=== PATIENT | male | born 1960 ===

== ENCOUNTER 2024-08-15 09:45 | Outpatient (CLI) | payer OTHER ==
[2024-08-15 11:26] LABS: ALBUMIN 4.2 gm/dL (3.4-5.0); BILIRUBIN TOTAL 0.86 mg/dL (0.3-1.2); CALCIUM 9.6 mg/dL (8.5-10.1); CHOL HDL RATIO 2.3 (0-5.0); GFR 75.71; GLOBULINA 3.8 G/DL (2.4-3.5); POTASSIUM 4.83 mEq/L (3.5-5.1); TSH 1.11 uIU/mL (0.358-3.74)
== END 2024-08-15 09:52 | disposition home or self-care (01) ==
LOC: LAB 09:45
DX: E78.2 Mixed hyperlipidemia (principal); I10 Essential (primary) hypertension

== ENCOUNTER 2024-12-02 08:08 | Outpatient (CLI) | payer OTHER | END 2024-12-02 08:10 | disposition home or self-care (01) | LOC: NUCLEAR 08:08 | PROVIDERS: ATTEND Internal Medicine | DX: I70.203 Unspecified atherosclerosis of native arteries of extremities, bilateral legs (principal); I10 Essential (primary) hypertension; E78.2 Mixed hyperlipidemia; R07.9 Chest pain, unspecified ==

== ENCOUNTER 2024-12-14 08:32 | Outpatient (CLI) | payer OTHER | END 2024-12-14 08:33 | disposition home or self-care (01) | LOC: NUCLEAR 08:32 | PROVIDERS: ATTEND Internal Medicine | DX: I10 Essential (primary) hypertension (principal); E78.2 Mixed hyperlipidemia; I70.203 Unspecified atherosclerosis of native arteries of extremities, bilateral legs; R07.9 Chest pain, unspecified ==

== ENCOUNTER → 2025-01-23 08:06 | Outpatient (CLI) | payer OTHER ==
[2025-01-23 09:36] LABS: URINE APPEARANCE Clear; URINE BILIRRUBIN Negative (NEGATIVE); URINE BLOOD Negative; URINE COLOR Yellow; URINE GLUCOSE Negative (NEGATIVE); URINE KETONE Negative (NEGATIVE); URINE LEUKOCYTE Negative; URINE NITRATE Negative; URINE PROTEIN Negative (NEGATIVE); URINE UROBILINOGEN 0.2 E.U./dl
[2025-01-23 09:40] LABS: URINE BACTERIA 4.8 uL (0.0-1933); URINE RBC 5.2 uL (0.0-20.8)
[2025-01-23 10:05] LABS: HEMATOCRIT 43.9 % (39.0-48.0); HEMOGLOBIN 15.3 g/dL (13-16.00); MEAN CELL VOLUME 85.5 fL (80.0-100.00); MEAN CORPUSCULAR HEMOGLOBIN 29.7 pg (27.00-32.0); MEAN CORPUSCULAR HGB CONC 34.8 g/dl (32.0-36.0); PLATELET COUNT 267 K/uL (150-450); RED BLOOD COUNT 5.14 M/uL (4.00-6.00); RED CELL DISTRIBUTION WIDTH 14.4 % (11.5-14.5)
[2025-01-23 10:24] LABS: ALBUMIN 4.1 gm/dL (3.4-5.0); ALKALINE PHOSPHATASE 58 U/L (50-136); ALT/SGPT 33 U/L (12-78); ANION GAP 10 (10.0-20.0); AST/SGOT 26 U/L (15-37); BILIRUBIN TOTAL 0.82 mg/dL (0.3-1.2); BLOOD UREA NITROGEN 12 mg/dL (7-18); BUN CREA RATIO 12 (7.0-25.0); CALCIUM 9.5 mg/dL (8.5-10.1); CARBON DIOXIDE 32 mEq/L (21-32); CHLORIDE 100 mmol/L (98-107); CHOL HDL RATIO 2.3 (0-5.0); CHOLESTEROL 130 mg/dL (0-200); CREATININE SERUM 1.01 mg/dL (0.70-1.30); GFR 74.85; GLOBULINA 3.7 G/DL (2.4-3.5); GLUCOSE FASTING 94 mg/dL (65-100); HDL 56 mg/dl (40-60); LDL 50 mg/dl (0-130); OSMOLALITY SERUM 273 MOSM/KG (275-295); POTASSIUM 4.66 mEq/L (3.5-5.1); SODIUM 137 mmol/L (136-145); T4 FREE 1.04 NG/ML (0.76-1.46); TOTAL PROTEIN 7.8 gm/dL (6.4-8.2); TRIGLYCERIDES 120 mg/dL (0-150); VLDL 24 (0-39)
[2025-01-23 10:26] LABS: C-REACTIVE PROTEIN < 0.29 MG/DL (0.00-0.29)
[2025-01-23 10:30] LABS: URINE EPITHELIAL CELLS 0.1 uL (0.0-38.8); URINE WBC 0.7 uL (0.0-23.2)
== END | disposition home or self-care (01) ==
LOC: LAB 08:06
PROVIDERS: ATTEND Internal Medicine
DX: E78.2 Mixed hyperlipidemia (principal); I10 Essential (primary) hypertension; Z82.49 Family history of ischemic heart disease and other diseases of the circulatory system; R73.9 Hyperglycemia, unspecified; R94.5 Abnormal results of liver function studies; D64.9 Anemia, unspecified; Z83.430 Family history of elevated lipoprotein(a); R79.82 Elevated C-reactive protein (CRP); E03.9 Hypothyroidism, unspecified